=== PATIENT | female | born 1985 | race Caucasian/White ===

== ENCOUNTER 2017-10-06 20:15 | Emergency (ER) | payer BC, MEDICAID ==
[~2017-10-06] VITALS: Ht 157.5 cm; Wt 81.5 kg
[2017-10-06 20:39] VITALS: BP 148/82
[2017-10-06] MEDS ORDERED: DEXAMETHASONE 4 MG TABLET PO ONE (21:00)
== END 2017-10-06 21:15 | disposition home or self-care (01) ==
LOC: EMS 20:16
DX: J02.8 Acute pharyngitis due to other specified organisms (principal); B97.89 Other viral agents as the cause of diseases classified elsewhere; R03.0 Elevated blood-pressure reading, without diagnosis of hypertension; H92.09 Otalgia, unspecified ear
CPT/HCPCS: 99283; J8540